=== PATIENT | male | born 1960 | race Hispanic/Latino ===

== ENCOUNTER 2017-04-15 10:19 | Day surgery (SDC) | payer OTHER ==
[2017-04-14 13:36] VITALS: BMI 31.1
[2017-04-15] MEDS ORDERED: Sterile Water 0 ML IV ONE (12:13)
[2017-04-15] MEDS ORDERED: methylPREDNISolone Depo 80 mg/ml Inj ONE (12:13)
[2017-04-15] MEDS ORDERED: Iohexol 300 10 ML ONE (12:14)
[2017-04-15] MEDS ORDERED: Bupivacaine HCl 0.25% PF (10 ml) Inj ONE (12:14)
[2017-04-15] MEDS ORDERED: Lactated Ringer's 1,000 ML IV ONE (12:22)
[2017-04-15] MEDS ORDERED: Propofol 10 mg/ml Inj (20 ML) ONE (12:23)
[2017-04-15] MEDS ORDERED: Sodium Chloride 0.9% Inj (10mL) IV ONE (12:39)
[2017-04-15] MEDS ORDERED: Lactated Ringer's 1,000 ML IV SCH ×2 (13:00)
[2017-04-15 14:45] VITALS: BP 126/78; PULSE 76; RESP 18; TEMP 97.6; O2SAT 97
--- NOTE | 2017-04-16 12:31 | RAD ---
PROCEDURE: Fluoroscopy up to 1 hr. HISTORY: PAIN MANAGEMENT COMPARISON: None TECHNIQUE: Total fluoroscopic time (continuous mode) utilized during the procedure: 12.3 seconds. Total exam DLP: (mGy): 3.33. FINDINGS: Submitted images from the current procedure: 1.0. IMPRESSION: Less than 1 hr fluoroscopic time utilized during performance of the procedure.
--- NOTE | 2017-07-10 08:13 | OP ---
PROCEDURE DATE: 04/15/2017 PREOPERATIVE DIAGNOSIS: Lumbar radiculopathy. POSTOPERATIVE DIAGNOSIS: Lumbar radiculopathy. PROCEDURE: Caudal epidural steroid injection on fluoroscopic guidance. SURGEON: Hang Felix MD TYPE OF ANESTHESIA: TIVA. INDICATIONS FOR THE PROCEDURE: The above-noted patient has been seen and has a positive history and physical/imaging finding. The above-noted diagnosis has been established. The patient has failed basic non-invasive conservative treatment. The treatment options both surgical and nonsurgical risks and benefits has been explained to the the patient simple layman terms including complications such as bleeding, allergic reaction, infection and other complications up to an including . Informed consent was obtained after the risks and benefits and alternatives were explained to the patient. DESCRIPTION OF THE PROCEDURE: The patient was brought into the operating room, placed in a prone position. Standard ASA monitors were identified. Confirmation of the procedure was then obtained from the patient. Sterile drapes were placed around the area to be injected. The overlying skin was anesthetized with 1% lidocaine using a 22-gauge, 1.5-inch needle. So, the level was identified using fluoroscopy 22-gauge, 3.5-inch needle was advanced under fluoroscopic guidance lateral view into the epidural space. Intravascular intrathecal injections were excluded. There were no paresthesias during needle placement. After negative aspiration, injected revealing epidural spread. Two 15 mL of mixture of 80 mg Depo-Medrol and 14 mL of normal saline was injected at the level mentioned. Needle was then withdrawn and flushed with normal saline and removed. The patient tolerated the procedure well, awake, alert and oriented x3. Vital signs stable. He was discharged in stable and good condition. Complications none. The patient was given postoperative instruction. Hang Felix MD MTDD
== END 2017-04-15 15:05 | disposition home or self-care (01) ==
LOC: H.OPSURG 10:19
PROVIDERS: ATTEND Anesthesiology Pain Medicine
DX: M54.16 Radiculopathy, lumbar region (principal); F32.9 Major depressive disorder, single episode, unspecified
CPT/HCPCS: 62323; J1040; J2001; J2704; J7120; Q9967

== ENCOUNTER 2017-07-08 06:09 | Day surgery (SDC) | payer OTHER ==
[2017-07-03 14:03] VITALS: BMI 30.4
[2017-07-08 07:00] VITALS: RESP 18; O2SAT 96
[2017-07-08] MEDS ORDERED: Iohexol 240 (10 ml) IVP ONE (09:12)
[2017-07-08] MEDS ORDERED: Lidocaine 1% PF (5ml) Amp INJ ONE (09:12)
[2017-07-08] MEDS ORDERED: methylPREDNISolone Depo 80 mg/ml Inj IM ONE (09:12)
[2017-07-08 09:46] VITALS: BP 108/84; PULSE 71; TEMP 97.3
--- NOTE | 2017-07-08 11:01 | RAD ---
PROCEDURE: Fluoroscopy up to 1 hr.. HISTORY: PAIN MANAGEMENT COMPARISON: None TECHNIQUE: Standard protocol for this study/examination. FINDINGS: Total fluoroscopic time (continuous mode) utilized during the procedure 16.0 (seconds). Total exam DLP: (mGy) 5.78 IMPRESSION: Less than 1 hr fluoroscopic time utilized during performance of the procedure.
--- NOTE | 2017-07-10 08:13 | OP ---
PROCEDURE DATE: 07/08/2017 PREOPERATIVE DIAGNOSIS: Lumbar radiculopathy. POSTOPERATIVE DIAGNOSIS: Lumbar radiculopathy. PROCEDURE: Caudal epidural steroid injection using fluoroscopic guidance with epidurography. SURGEON: Hang Felix MD TYPE OF ANESTHESIA: TIVA. INDICATIONS: The above-noted patient has been seen and has a positive history, physical and imaging exams. The above-noted diagnosis has been established and the patient has failed basic and non_invasive conservative treatment. The different options of both surgical and nonsurgical, risks and benefits have been explained in simple learning terms with the patient including the complications such as bleeding, allergic reaction, infection, and other complications up to including . Informed consent was obtained after risks , benefits, and alternatives were explained at length to the patient. DESCRIPTION OF PROCEDURE: The patient was brought into the procedure room and placed in a prone position. Standard ASA monitors were applied. Confirmation of the procedure was obtained from the patient. The skin overlying the area to be injected was cleaned in sterile fashion. Sterile drapes were placed around the area to be injected. The overlying skin was then anesthetized with 1% lidocaine using a 22-gauge 1.5-inch needle. The level to was identified under fluoroscopy ( ). A 22-gauge 3.5 inch Tuohy needle was advanced under fluoroscopic guidance due to lateral view into the epidural space. Intravascular and intrathecal injections were excluded. There were no paresthesia during the needle placement. After negative aspiration, 3 mL of Omnipaque 300 injected revealing epidural space. After mixture of 80 mg of methylprednisolone and 14 mL of normal saline were injected at the level. The needle was then withdrawn and flushed with saline and removed. The patient tolerated the procedure well, awake, alert, and oriented x3. Vital signs stable. Discharged in good stable condition. Complications none. The patient was given postoperative instructions. Hang Felix MD [facility]
== END 2017-07-08 10:20 | disposition home or self-care (01) ==
LOC: H.OPSURG 06:09
PROVIDERS: ATTEND Anesthesiology Pain Medicine
DX: M51.17 Intervertebral disc disorders with radiculopathy, lumbosacral region (principal); F32.9 Major depressive disorder, single episode, unspecified
CPT/HCPCS: 64483; J1040; Q9966; Q9967